=== PATIENT | female | born 1980 | race Caucasian/White ===

== ENCOUNTER 2016-05-11 13:56 | Emergency (ER) ==
[2016-05-11 14:00] VITALS: BP 127/81; TEMP 98.6; BMI 60.0
--- NOTE | 2016-05-11 14:44 | ED.PDOC ---
General ED Provider: Dr. STEW TORRES Chief Complaint: Knee Pain/Injury Stated Complaint: left lower leg pain Time Seen by Physician: 14:00 (no trauma) Mode of Arrival: Walk-In Information Source: Patient Exam Limitations: No limitations Primary Care Provider: HUSSAIN RIOS Nursing and Triage Documentation Reviewed and Agree: Yes Musculoskeletal Complaint Exam - Knee Pain Complaint/Exam Mechanism of Injury: Reports: No known trauma Onset/Duration: 2 days Symptoms Are: Still present Onset of Pain: Reports: Days Initial Severity: Moderate Current Severity: Mild Location: Reports: Discrete Character: Reports: Aching Alleviating: Reports: Rest Aggravating: Reports: Movement Associated Signs and Symptoms: Denies: Swelling, Redness, Bruising, Fever, Weakness, Numbness, Tingling Able to Bear Weight: Yes Septic Arthritis Risk Factors: Reports: None Gout Risk Factors: Reports: None Jazimn Test Positive: No Ambar Test Positive: No Differential Diagnoses: DVT Review of Systems - Review Of Systems Constitutional: Reports: No symptoms Eyes: Reports: No symptoms Ears, Nose, Mouth, Throat: Reports: No symptoms Respiratory: Reports: No symptoms Cardiac: Reports: No symptoms GI: Reports: No symptoms : Reports: No symptoms Musculoskeletal: Reports: Other (leg pain left ) Skin: Reports: No symptoms Neurological: Reports: No symptoms Endocrine: Reports: No symptoms Hematologic/Lymphatic: Reports: No symptoms All Other Systems: Reviewed and Negative Past Medical History - Past Medical History Endocrine: Reports: Hypothyroid Cardiovascular: Reports: None Respiratory: Reports: None Hematological: Reports: None Gastrointestinal: Reports: None Genitourinary: Reports: None Neuro/Psych: Reports: Anxiety Musculoskeletal: Reports: None Cancer: Reports: None Last Menstrual Period: february 2016 Other Pertinent Past Medical History: Obesity - Surgical History General Surgical History: Reports: None - Family History Family History: Reports: None - Social History Smoking Status: Never smoker Hx Substance Use: No Alcohol Screening: None Physical Exam - Physical Exam Appearance: Well-appearing, No pain distress, Well-nourished Eyes: MANUEL, EOMI, Conjunctiva clear ENT: Ears normal, Nose normal, Oropharynx normal Respiratory: Airway patent, Breath sounds clear, Breath sounds equal, Respirations nonlabored Cardiovascular: RRR, Pulses normal, No rub, No murmur GI/: Soft, Nontender, No masses, Bowel sounds normal, No Organomegaly Musculoskeletal: Normal strength, ROM intact, No edema, No calf tenderness Skin: Warm, Dry, Normal color Neurological: Sensation intact, Motor intact, Reflexes intact, Cranial nerves intact, Alert, Oriented Psychiatric: Affect appropriate, Mood appropriate Interpretation - Radiology Interpretation Radiology Interpretation By: Radiologist Critical Care Note - Critical Care Note Total Time (mins): 0 Course - Course Orders, Labs, Meds: Orders Category Date Time Status U/S VENOUS SCAN LT. LEG Stat RADS 05/11/16 14:28 Ordered Vital Signs: Temp Pulse Resp BP Pulse Ox 05/11/16 13:58 98.6 F 70 14 127/81 98 Departure - Departure Time of Disposition: 15:20 Disposition: HOME SELF-CARE Discharge Problem: Leg pain, left Instructions: Leg Pain (ED) Condition: Good Pt referred to PMD for follow-up: No Additional Instructions: Please call your Family Physician as soon as possible to schedule a follow-up appointment. Allergies/Adverse Reactions: Allergies No Known Allergies Allergy (Verified 05/11/16 14:01) Home Medications: Ambulatory Orders Levothyroxine Sodium [Synthroid] 75 mcg PO QDAC 05/01/14 Aspirin [Aspirin Chewable] 81 mg PO DAILY 09/15/14 Dextroamphetamine/Amphetamine [Adderall 20 Mg Tablet] 20 mg PO BID #60 Escitalopram Oxalate [Lexapro] 10 mg PO DAILY #30 03/31/16
--- NOTE | 2016-05-11 15:11 | US ---
EXAM: Left lower extremity venous Doppler History: Left leg pain. Technique: Multiple sonographic images through the left lower extremity were obtained. Color duple x Doppler was used to interrogate vascular flow. Findings: The left common femoral, greater saphenous, profunda, superficial femoral, popliteal, per lua, posterior tibial and anterior tibial veins demonstrate spontaneous flow with normal compressi on and normal augmentation. Left inguinal lymph node measuring 1.3 cm in short axis diameter demonst rating fatty hilum. Impression: No sonographic evidence for deep venous thrombosis.
== END 2016-05-11 15:17 | disposition home or self-care (01) ==
LOC: ED 13:56
DX: M79.605 Pain in left leg (principal); Z79.899 Other long term (current) drug therapy
CPT/HCPCS: 99283

== ENCOUNTER 2017-04-19 16:17 | Emergency (ER) ==
[2017-04-19 16:27] VITALS: BP 162/94; TEMP 100.3; BMI 69.0
--- NOTE | 2017-04-19 17:44 | ED.PDOC ---
General ED Provider: Dr. STEW TORRES Chief Complaint: Sore Throat Stated Complaint: SORE THROAT Time Seen by Physician: 16:17 (SEEN WITH SAMMIE) Mode of Arrival: Walk-In Information Source: Patient Exam Limitations: No limitations Primary Care Provider: HUSSAIN RIOS Nursing and Triage Documentation Reviewed and Agree: Yes Reviewed sepsis parameters & appropriate labs ordered?: Yes System Inflammatory Response Syndrome: Not Applicable Sepsis Protocol: For patient's 13 years and over: Temp is 96.8 and below OR 101 and greater Pulse >90 BPM Resp >20/minute Acutely Altered Mental Status Are patient's symptoms suggestive of a new infection, such as: -Pneumonia -Skin, Soft Tissue -Endocarditis -UTI -Bone, Joint Infection -Implantable Device -Acute Abdominal Infection -Wound Infection -Meningitis -Blood Stream Catheter Infection -Unknown System Inflammatory Response Syndrome: Not Applicable EENT Complaint Exam - Throat Complaint/Exam Symptoms Are: Still present Timimg: Intermittent Initial Severity: Moderate Current Severity: Moderate Aggravating: Reports: Eating Alleviating: Reports: None Associated Signs and Symptoms: Reports: Chills, Cough, Nasal congestion. Denies : Fever, Dysphagia, Drooling, Foreign body sensation, Wheezing, Hoarseness, Sinus discomfort, Difficulty breathing, Lethargy, Irritability, Decreased activity, Vomiting, Diarrhea, Decreased hearing, Ear drainage Related History: Reports: Similar Episode Uvula Midline: Yes Beckie-tonsillar Fluctuence: No Scarlatinaform Rash Present: No Stridor Present: No Sinus Tenderness Present: No Tonsillar Hypertrophy Present: No Tonsillar Exudate Present: No Beckie-tonsillar Swelling Present: No Adenopathy Present: No Splenomegaly Present: No Differential Diagnoses: Laryngitis, Mononucleosis, Pharyngitis Review of Systems - Review Of Systems Constitutional: Reports: Chills, Fever, Malaise Eyes: Reports: No symptoms Ears, Nose, Mouth, Throat: Reports: No symptoms Respiratory: Reports: Cough Cardiac: Reports: No symptoms GI: Reports: No symptoms : Reports: No symptoms Musculoskeletal: Reports: No symptoms Skin: Reports: No symptoms Neurological: Reports: No symptoms Endocrine: Reports: No symptoms Hematologic/Lymphatic: Reports: No symptoms All Other Systems: Reviewed and Negative Past Medical History - Past Medical History Endocrine: Reports: Hypothyroid Cardiovascular: Reports: None Respiratory: Reports: None Hematological: Reports: None Gastrointestinal: Reports: None Genitourinary: Reports: None Neuro/Psych: Reports: Anxiety Musculoskeletal: Reports: None Cancer: Reports: None Last Menstrual Period: 03/27 Other Pertinent Past Medical History: Obesity - Surgical History General Surgical History: Reports: None - Family History Family History: Reports: None - Social History Smoking Status: Never smoker Hx Substance Use: No Alcohol Screening: None - Immunizations Tetanus Shot up to Date: No Physical Exam - Physical Exam Appearance: Ill-appearing Eyes: MANUEL, EOMI, Conjunctiva clear ENT: Erythema Respiratory: Airway patent, Breath sounds clear, Breath sounds equal, Respirations nonlabored Cardiovascular: RRR, Pulses normal, No rub, No murmur GI/: Soft, Nontender, No masses, Bowel sounds normal, No Organomegaly Musculoskeletal: Normal strength, ROM intact, No edema, No calf tenderness Skin: Warm, Dry, Normal color Neurological: Sensation intact, Motor intact, Reflexes intact, Cranial nerves intact, Alert, Oriented Psychiatric: Affect appropriate, Mood appropriate Critical Care Note - Critical Care Note Total Time (mins): 0 Course - Course Hematology/Chemistry: 04/19/17 17:12 04/19/17 17:12 Orders, Labs, Meds: Lab Review 04/19/17 04/19/17 04/19/17 16:45 16:45 16:45 WBC RBC Hgb Hct MCV MCH MCHC RDW Coeff of Xiao Plt Count Immature Gran % (Auto) Neut % (Auto) Lymph % (Auto) Centre % (Auto) Eos % (Auto) Baso % (Auto) Immature Gran # (Auto) Neut # Lymph # Centre # Eos # Baso # Sodium Potassium Chloride Carbon Dioxide Anion Gap BUN Creatinine Estimated GFR (MDRD) BUN/Creatinine Ratio Glucose Lactic Acid Calcium Total Bilirubin AST ALT Alkaline Phosphatase Total Protein Albumin Globulin Albumin/Globulin Ratio Urine Color Yellow Urine Clarity Clear Urine pH 6.0 Ur Specific [place] 1.025 Urine Protein 1+ Urine Glucose (UA) Negative Urine Ketones Negative Urine Blood Negative Urine Nitrite Negative Urine Bilirubin 1+ Urine Urobilinogen 0.2 Ur Leukocyte Esterase Negative Ur Squamous Epith Cells 2-5 Urine Bacteria Trace Urine Test Negative Influenza A (Rapid) Positive by naat H Influenza B (Rapid) Negative by naat 04/19/17 04/19/17 04/19/17 17:12 17:12 17:12 WBC 6.43 RBC 4.20 Hgb 12.0 Hct 35.2 L MCV 83.8 MCH 28.6 MCHC 34.1 RDW Coeff of Xiao 13.8 Plt Count 254 Immature Gran % (Auto) 0.6 Neut % (Auto) 59.6 Lymph % (Auto) 21.3 Centre % (Auto) 17.7 H Eos % (Auto) 0.3 Baso % (Auto) 0.5 Immature Gran # (Auto) 0.0 Neut # 3.8 Lymph # 1.4 Centre # 1.1 Eos # 0.0 Baso # 0.0 Sodium 138 Potassium 3.8 Chloride 106 Carbon Dioxide 24 Anion Gap 11.8 BUN 13 Creatinine 0.84 Estimated GFR (MDRD) 77.00 BUN/Creatinine Ratio 15.47 Glucose 84 Lactic Acid 6.1 Calcium 9.2 Total Bilirubin 0.3 AST 20 ALT 27 Alkaline Phosphatase 95 Total Protein 7.6 Albumin 3.6 Globulin 4.0 Albumin/Globulin Ratio 0.90 Urine Color Urine Clarity Urine pH Ur Specific [place] Urine Protein Urine Glucose (UA) Urine Ketones Urine Blood Urine Nitrite Urine Bilirubin Urine Urobilinogen Ur Leukocyte Esterase Ur Squamous Epith Cells Urine Bacteria Urine Test Influenza A (Rapid) Influenza B (Rapid) Orders Category Date Time Status EKG-(ED ONLY) Stat CARDIO 04/19/17 16:43 Ordered BLOOD CULTURE (ED ONLY) Stat LAB 04/19/17 17:12 Received CBC W/ AUTO DIFF Stat LAB 04/19/17 17:12 Completed COMPREHENSIVE METABOLIC PANEL Stat LAB 04/19/17 17:12 Completed FLU A/B MOLECULAR Stat LAB 04/19/17 16:45 Completed LACTIC ACID Stat LAB 04/19/17 17:12 Completed RAPID STREP SCREEN [MOLECULAR GROUP A STREP] Stat LAB 04/19/17 16:45 Completed TROPONIN I Stat LAB 04/19/17 17:40 Ordered URINALYSIS C & S IF INDICATED Stat LAB 04/19/17 16:45 Completed URINE Stat LAB 04/19/17 16:45 Completed CHEST, 2 VIEWS PA & LAT Stat RADS 04/19/17 16:43 Ordered Vital Signs: Temp Pulse Resp BP Pulse Ox 04/19/17 16:17 100.3 F H 92 H 16 162/94 H 95 Departure - Departure Time of Disposition: 17:43 Disposition: HOME SELF-CARE Discharge Problem: Sore throat symptom, Influenza A Instructions: Influenza (ED) Condition: Good Pt referred to PMD for follow-up: Yes IPMP verified?: Yes Allergies/Adverse Reactions: Allergies No Known Allergies Allergy (Verified 04/19/17 16:30) Home Medications: Ambulatory Orders Levothyroxine Sodium [Synthroid] 75 mcg PO QDAC 05/01/14 Aspirin [Aspirin Chewable] 81 mg PO DAILY 09/15/14
--- NOTE | 2017-04-20 05:20 | DI ---
EXAM: Two-view chest HISTORY: Fever cough COMPARISON: Single-view chest 09/15/2014 FINDINGS: The cardiomediastinal silhouette is stable. The lungs are clear bilaterally. Degenerativ e changes are seen within the mid-lower thoracic spine. IMPRESSION: No evidence of active pulmonary disease
== END 2017-04-19 18:15 | disposition home or self-care (01) ==
LOC: ED 16:17
DX: J09.X2 Influenza due to identified novel influenza A virus with other respiratory manifestations (principal); J02.9 Acute pharyngitis, unspecified
CPT/HCPCS: 36415; 80053; 81001; 81025; 83605; 84484; 85025; 87040; 87502; 87651; 93005; 93010; 99283

== ENCOUNTER 2017-05-27 09:08 | Outpatient (CLI) ==
--- NOTE | 2017-05-27 09:37 | DI ---
EXAM: Chest two views HISTORY: Chest pain, physical exam COMPARISON: 04/19/2017 TECHNIQUE: Two views of the chest were performed FINDINGS: The lungs are clear. There is no pleural effusion or pneumothorax. The heart is normal i n size. The mediastinal contour is normal. There are no acute abnormalities of the bones. IMPRESSION: No acute cardiopulmonary process.
== END 2017-05-27 09:09 | disposition home or self-care (01) ==
LOC: LAB 09:08
PROVIDERS: ATTEND Family Medicine
DX: Z00.00 Encounter for general adult medical examination without abnormal findings (principal)
CPT/HCPCS: 36415; 80053; 80061; 80306; 81001; 84439; 84443; 85025; 93005; 93010

== ENCOUNTER 2017-11-17 14:07 | Outpatient (RCR) ==
--- NOTE | 2017-11-20 09:31 | RS.OPPTEV2 ---
Date of Note: 11/17/17 Visit #: 1 Date of Evaluation: 11/17/17 Payer Source: Medicaid Surgery Performed?: No Treatment Diagnosis: peripheral edema History of Condition/Mechanism of Injury:: pt states that her legs have been swelling for months and at times she has weeping in BLE. Prior Level of Function.....Patient was independent with: ADL's, Self Care, Work /Vocation, Caregiving, Ambulation/Mobility, Community Integration/Access Level of Function: pt works for [employer] sitting at a desk, she cares for her 10 y/o son. Functional Limitations: Ambulation Current Subjective/complaints:: pt reports that her leg swelling continues to get worse and has occasional weeping. pt states that she bought some compression hose at [facility] but has been unable to get them on. She is currently having no pain, however has BLE pain at times due to swelling. 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 RLE: arch of foot 28cm, ankle 33cm, 10cm above ankle 37cm, knee 61 cm, 10 cm above the knee 79.5cm Gait - Gait Pattern General Gait Pattern Observation: No Deviations/Normal Gait Comments: pt with increased lat sway with amb General Range of Motion: BUE WFL's. BLE WFL's (somewhat limited due to soft tissue) Muscle Strength: BUE 5/5. BLE 5/5 Palpation Palpation Findings: Tenderness Comments:: tenderness noted in BLE Sensation - Sensation Right Upper Extremity: Intact/Normal Left Upper Extremity: Intact/Normal Right Lower Extremity: Intact/Normal Left Lower Extremity: Intact/Normal Balance - Sitting Balance Static Sitting Balance: Normal Dynamic Sitting Balance: Normal - Standing Balance Static Standing Balance: Normal Dynamic Standing Balance: Normal Interventions - Exercise/Activities/Manual Therapy Exercises/Activities: pt instructed on self directional massage to decrease edema, pt also received directional massage per SALESFORCE CONSULTANT BLE. Manual Therapy: n/a Total minutes of Manual Therapy: pt instructed on self lymphatic directional massage for lymph drainage. HOME EXERCISE PROGRAM: pt given HEP to perform self lymphatic directional massage to BLE as well as elevating BLE and performing ankle pumps. - Charges Timed Code Treatment Minutes: 41 Total Treatment Time: 54 Procedures billed for this date of service:: eval low EVALUATION COMPLEXITY LEVEL EVALUATION COMPLEXITY LEVEL: HISTORY: Low (OA and peripheral edema), EXAM OF BODY SYSTEMS: Low (edema), CLINICAL PRESENTATION: Medium, CLINICAL DECISION MAKING: Low Assessment Assessment: pt presents with BLE peripheral edema L worse than R. pt with no open wounds noted at this time. pt does report occasional weeping BLE. pt presents with firm edema noted in R lower ankle. Patient Education: Home Exercise Program, Education of Plan of Care Rehab Potential: Good Short Term Goals Goal #1: pt independent with self directional massage Goal to be met by: 12/01/17 Goal #2: pt with decreased edema LLE equal to RLE Goal to be met by: 12/01/17 Photographic Equipment Inspector Goals Goal #1: pt independent with HEP as well as self massage to maintain gains after dc Goal to be met by: 12/08/17 Goal #2: pt receive compression stockings and independent with don/doff stockings Goal to be met by: 12/08/17 Plan - Treatment to be Provided Procedures: Therapeutic Exercises, Therapeutic Activity, Manual Therapy, Massage , Patient Education Modalities: No Modalities - Treatment Plan Frequency: 2 X week Duration: 3 weeks ORDER # VISITS AND/OR THROUGH DATE: 12/08/17 - Treatment Code (1) Peripheral edema Code(s): R60.9 - EDEMA, UNSPECIFIED
--- NOTE | 2017-11-24 14:48 | RS.CXNS ---
Date of scheduled appointment: 11/24/17 Type: Cancel (Patient calls to cancel appointment today. States she has to have brakes put on her car today. Reschedules for the end of next week.)
--- NOTE | 2017-12-01 15:06 | RS.CXNS ---
Date of scheduled appointment: 12/01/17 Type: No Show (Unknown)
--- NOTE | 2017-12-08 16:11 | RS.CXNS ---
Date of scheduled appointment: 12/08/17 Type: No Show (Patient no showed appointment and no call to reschedule. Discharge due to lack of attendance.)
== END 2017-12-10 23:59 ==
PROVIDERS: ATTEND Family Medicine
DX: R60.9 Edema, unspecified (principal)

== ENCOUNTER 2018-07-06 15:52 | Outpatient (CLI) ==
[2018-03-01 17:14] VITALS: BMI 64.5
== END 2018-07-06 15:53 | disposition home or self-care (01) ==
LOC: LAB 15:52
PROVIDERS: ATTEND Nurse Practitioner Family
DX: R60.9 Edema, unspecified (principal)
CPT/HCPCS: 36415; 80053; 84443; 85025

== ENCOUNTER 2018-11-08 16:18 | Outpatient (CLI) | payer MEDICAID, OTHER ==
[2018-09-26 22:22] VITALS: BMI 69.3
== END 2018-11-08 16:19 | disposition home or self-care (01) ==
LOC: RHC-LAB 16:18
PROVIDERS: ATTEND General Practice
DX: N39.0 Urinary tract infection, site not specified (principal)
CPT/HCPCS: 81001

== ENCOUNTER 2018-11-09 07:48 | Outpatient (CLI) ==
[2018-09-26 22:22] VITALS: BMI 69.3
== END 2018-11-09 07:49 | disposition home or self-care (01) ==
LOC: RHC-LAB 07:48
PROVIDERS: ATTEND General Practice
DX: E03.9 Hypothyroidism, unspecified (principal); E66.9 Obesity, unspecified
CPT/HCPCS: 36415; 80053; 80061; 83036; 83525; 84443; 85025